=== PATIENT | female | born 1985 | race Caucasian/White ===

== ENCOUNTER 2018-04-06 18:10 | Emergency (ER) | payer OTHER ==
[~2018-04-06] VITALS: Ht 170.2 cm; Wt 52.2 kg
[~2018-04-06 18:10] MED LIST: CIPRO250 MG/5 M; KETO10TA2 PO
== END 2018-04-06 21:42 | disposition home or self-care (01) ==
LOC: ER 18:10
DX: N93.8 Other specified abnormal uterine and vaginal bleeding (principal); R53.1 Weakness